=== PATIENT | male | born 1985 | race Caucasian/White ===

== ENCOUNTER 2020-02-17 07:30 | Outpatient (RCR) | payer OTHER ==
[~2020-02-17] VITALS: Ht 180 cm; Wt 125.0 kg
[~2020-02-17 07:30] MED LIST: DIPH25TA31 PO; IBUP800T26 PO; OMEP20TA7 PO
== END 2020-02-17 14:40 | disposition home or self-care (01) ==
LOC: PREOP 07:30
PROVIDERS: ATTEND Surgery
DX: Z01.812 Encounter for preprocedural laboratory examination (principal); Z11.59 Encounter for screening for other viral diseases
CPT/HCPCS: 87635

== ENCOUNTER 2020-02-20 06:02 | Day surgery (SDC) | payer OTHER ==
[~2020-02-20] VITALS: Ht 180 cm; Wt 125.0 kg
[2020-02-20] VITALS (10 sets, daily range): BP systolic 132–150; BP diastolic 85–98
[2020-02-20] MEDS ORDERED: ceFAZolin 2 GM IV Premixed 50 ML IV ONE (06:30)
[2020-02-20] MEDS: LACTATED RINGERS 1,000 ML IV PRN ×2 (06:31→08:54)
[2020-02-20] MEDS ORDERED: ONDANSETRON 4 MG/2 ML (SDV) Z0FRAN ONE (07:03)
[2020-02-20] MEDS ORDERED: proPOfol 200 MG/20 ML (DIPRIVAN) VIAL IV ONE (07:03)
[2020-02-20] MEDS ORDERED: ROCURONIUM 10 MG/ML 5 ML SYRINGE IV ONE (07:03)
[2020-02-20] MEDS ORDERED: MIDAZOLAM 2 MG/2 ML (VERSED) VIAL ONE (07:03)
[2020-02-20] MEDS ORDERED: LIDOCAINE PF 2% 5 ML (XYLOCAINE) VIAL ONE (07:03)
[2020-02-20] MEDS ORDERED: fentaNYL INJECTION 100 MCG/2 ML AMP ONE ×2 (07:04→08:42)
[2020-02-20] MEDS ORDERED: SEVOFLURANE (ULTANE) 15 ML INHAL SOLN ONE ×2 (07:04→09:04)
[2020-02-20] MEDS ORDERED: BUP/EPI 0.5% 1:200,000 (SENSORCAINE) 30 ML VIAL ONE (07:25)
--- NOTE | 2020-02-20 08:21 | Progress Note-Pre Operative ---
Pre-Operative Progress Note H&P Reviewed The H&P was reviewed, patient examined and no changes noted. Date Seen by Provider: Feb 20, 2020 Time Seen by Provider: 08:20 Date H&P Reviewed: Feb 20, 2020 Time H&P Reviewed: 08:20 Pre-Operative Diagnosis: right gluteal cyst COY HENRIQUEZ DO Feb 20, 2020 08:21
[2020-02-20] MEDS ORDERED: SUCCINYLCHOLINE INJ 100 MG/5 ML SYR ONE (08:51)
[2020-02-20] MEDS ORDERED: MEPERIDINE (DEMEROL) INJ 50 MG/ML IVP ONE (09:15)
[2020-02-20] MEDS ORDERED: ONDANSETRON 4 MG/2 ML (SDV) Z0FRAN IVP PRN (09:15)
[2020-02-20] MEDS ORDERED: HYDROmorphone 2 MG/ML VIAL (DILAUDID) IV ONE (09:15)
[2020-02-20] MEDS ORDERED: morphine INJ 10 MG/ML 1ML (SYR OR VIAL) IVP ONE (09:15)
--- NOTE | 2020-02-20 09:21 | Progress Note-Post Operative ---
Post-Operative Progess Note Surgeon (s)/Feather Renovator (s) Surgeon COY HENRIQUEZ DO Feather Renovator: na Pre-Operative Diagnosis right gluteal cyst Post-Operative Diagnosis fistula Procedure & Operative Findings Date of Procedure 02/20/20 Procedure Performed/Findings exam under anesthesia, placement of seton Anesthesia Type lma Estimated Blood Loss Estimated blood loss (mL): scant Specimens/Packing Specimens Removed na COY HENRIQUEZ DO Feb 20, 2020 09:21
--- NOTE | 2020-02-20 09:25 | Discharge Inst-Simple/Standard ---
Discharge Inst-Standard Patient Instructions/Follow Up Plan of Care/Instructions/FU: 1 week Singh Activity as Tolerated: Yes Discharge Diet: Regular Diet Other Inst to Patient Follow up Appt: Make appointment for 1 week. Instructions: No strenuous activity. Use incentive spirometer at home as directed. No Smoking Keep area clean and dry. Symptoms to Report: Appetite Changes, Extremity Discoloration, Numbness/Tingling, Swelling Increased, Bleeding Excessive, Eyesight Changes, Pain Increased, Urine Color Change, Constipation(Persistent), Fever over 101 degree F, Pain/Pressure in chest, Urinating Difficulty, Cough Up/Vomit Blood, Heart Beat Irreg/Pounding, Pain/Pressure in jaw, Vaginal Bleeding Increase, Cramps in feet or legs, Lightheadedness, Pain/Pressure in shoulder, Diarrhea(Persistent), Memory Changes Suddenly, Questions/Concerns, Weight gain consecutive days, Dizziness/Fainting, Nausea/Vomiting, Shortness of Breath, Weight gain over 2 pounds If questions or concerns contact your physician Or seek help at emergency department. COY HENRIQUEZ DO Feb 20, 2020 09:25
--- NOTE | 2020-02-20 09:46 | Anesthesia-General Post-Op ---
General Patient Condition Mental Status/LOC: Same as Preop Cardiovascular: Satisfactory Nausea/Vomiting: Absent Respiratory: Satisfactory Pain: Controlled Complications: Absent Post Op Complications Complications None Follow Up Care/Instructions Patient Instructions None needed. Anesthesia/Patient Condition Patient Condition Patient is doing well, no complaints, stable vital signs, no apparent adverse anesthesia problems. No complications reported per nursing. YUSUF MILES CRNA Feb 20, 2020 09:45
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
[2020-02-20] MEDS ORDERED: HYDROcodone/APAP 5 MG/325 MG (LORTAB) TAB PO ONE (11:00)
--- NOTE | 2020-02-20 12:00 | NUR ---
pt waiting on Dr. Winters to write pain medication prescription. Pt reports that Vicodin was effective in relieving post op pain, rates pain at this time 4/10 to rectal area.
[2020-02-20] MEDS ORDERED: HYDR-4226 PO (12:38)
--- NOTE | 2020-02-20 15:51 | OPERATIVE REPORT ---
DATE OF SERVICE: 02/20/2020 PREOPERATIVE DIAGNOSIS: Cyst, right buttock. POSTOPERATIVE DIAGNOSIS: Anorectal fistula. PROCEDURE: Exam under anesthesia and placement of Seton. SURGEON: Coy Winters DO ANESTHESIA: General. ESTIMATED BLOOD LOSS: Minimal. COMPLICATIONS: None. INDICATIONS: The patient is a 34-year-old male with a cyst that has been opened and drained a couple of times and has been having issues for about a year. He was discussed risks and benefits of procedure and wished to proceed with procedure. Consent was signed in the chart. DESCRIPTION OF PROCEDURE: The patient was taken to the operating suite, placed in lithotomy position, prepped and draped in sterile fashion. Timeout was performed. A small opening at the cystic area was present. Digital rectal exam was performed. Some slight hemorrhoidal changes apparent along the right anterior portion. Peroxide was injected through the small opening of the skin change and a tract was found that the traveled to the right anterior portion of the anus. Dittmar retractor was inserted helping visualize this. No other pathology was noted except for some slight hemorrhoidal disease. At this point, the fistula wire was inserted through the skin opening down through the fistula tract carefully until it was brought out into the anorectal region, which was then able to be grasped and then slowly retracted and placing a Seton and Seton was then tied. No other pathology noted. The area was washed and dried and gauze was placed. The patient tolerated procedure well without any complications, taken to recovery room in stable condition. RECOMMENDATIONS: The patient will follow up in one week. Any issues before that be seen at that time. The patient will continue to have a Seton tightened until able to be removed or may need fistulectomy. Job ID: [id number] DocumentID: [id number] Dictated Date: 02/20/2020 12:49:32 Sugar Controller Date: 02/20/2020 15:51:10 Dictated By: COY WINTERS DO
== END 2020-02-20 13:00 | disposition home or self-care (01) ==
LOC: SDC 06:02
PROVIDERS: ATTEND Surgery
DX: K60.5 Anorectal fistula (principal); D21.9 Benign neoplasm of connective and other soft tissue, unspecified; K21.9 Gastro-esophageal reflux disease without esophagitis; Z79.899 Other long term (current) drug therapy; Z90.89 Acquired absence of other organs; Z87.891 Personal history of nicotine dependence; Z82.49 Family history of ischemic heart disease and other diseases of the circulatory system; Z83.6 Family history of other diseases of the respiratory system
CPT/HCPCS: 87081